=== PATIENT | female | born 1945 | race Caucasian/White ===

== ENCOUNTER → 2018-05-13 | Outpatient (REF) | payer MEDICARE ==
[~2018-05-13] MED LIST: AMLODIPINE10 MG PO; AMLODIPINE5 MG OR; AMOX TR-K CLV OR; AMOXICILLIN500 MG; ATORVASTATIN CA20 MG PO; AUGMENTIN500TAB PO; AVELOX400 MG PO; BACTRIM DS1 TAB PO; BENZONATATE200 MG PO; BIAXIN500 MG OR; CIPRO500 MG OR; CIPRO500 MG PO; CRESTOR5 MG PO; DARVOCET-N100 MG OR; DIOVAN160 MG OR; EXFORGE1 TA1 PO; FLAGYL500 MG OR; FLAGYL500 MG PO; IRON325 MG OR; KEFLEX500 M1 PO; LISINOPRIL30 MG OR; METO50TA52 PO; PANTOPRAZOLE SO40 M1 PO; PERCOCET 5/325M1 TAB OR; PRECOSE; PREDNISONE20 MG PO; PREVACID30 M1 OR; PROCRIT2000 MG/ML SC; PROTONIX40 M2 PO; RENVELA0.8 GM PO; ROBITUSSIN AC10 ML PO; ULTRAM50 M1 PO; VICOPROFEN OR; ZITHROMAX250 MG PO; [UNRECOGNIZED DRUG - CODE] IJ
[2018-05-13 09:52] LABS: CHOLESTEROL HDL RATIO 3.3 (<4.4 (CALC))
== END | disposition home or self-care (01) ==
LOC: LAB 08:16
PROVIDERS: ATTEND Internal Medicine
DX: E78.49 Other hyperlipidemia (principal)

== ENCOUNTER 2018-12-08 16:34 | Observation (INO) | payer MEDICARE ==
[~2018-12-08] VITALS: Ht 154.9 cm; Wt 49.2 kg
--- NOTE | 2018-12-08 17:14 | NUR ---
PT TO ROOM FOR EXAM
[2018-12-08] MEDS ORDERED: LOSARTAN POTASS50 MG PO (17:17)
[2018-12-08] MEDS ORDERED: RENVELA0.8 GM PO (17:18)
[2018-12-08 18:05] LABS: HEMATOCRIT 25.6 % (37.0-47.0); HEMOGLOBIN 8.6 g/dl (12.0-16.0); IMMATURE GRANULOCYTES 0.8 % (0.0-5.0); MEAN CELL VOLUME 90.8 fL CALC (80.0-100.0); MEAN CORPUSCULAR HGB 30.5 pG CALC (26.0-32.0); MEAN CORPUSCULAR HGB CONC 33.6 g/L CALC (32.0-36.0); NEUT# 6.82 thou/uL (2.00-7.15); RED BLOOD COUNT 2.82 mill/uL (4.20-5.60); RED CELL DISTRI WIDTH 13.5 % (11.5-15.5)
[2018-12-08 18:29] LABS: ALBUMIN 3.8 g/dL (3.2-5.0); TOTAL PROTEIN 7.1 g/dL (6.3-8.2)
[2018-12-08 18:32] LABS: BILIRUBIN, TOTAL 0.9 mg/dL (0.0-1.4); CREATININE 2.6 mg/dL (0.5-1.0); POTASSIUM 3.5 mmol/l (3.5-5.1)
--- NOTE | 2018-12-08 18:57 | NUR ---
PT SEEN BY DR. MOSELEY, RECTAL EXAM SHOWED SMALL HEMMHOID, NO BLEEDING AT THIS TIME
--- NOTE | 2018-12-08 20:05 | NUR ---
PT STATES FEELS MUCH BETTER, LIGHTS TURNED OFF, AND RESTING COMFORTABLY AT THIS TIME
--- NOTE | 2018-12-08 21:05 | NUR ---
PT DENIES ANY PAIN AT THIS TIME. ANTIBIOTIC INFUSING. VITAL SIGNS STABLE
--- NOTE | 2018-12-08 21:29 | NUR ---
REPORT GIVEN TO ASHELY ON FLOOR FOR CONTINUATION OF CARE
--- NOTE | 2018-12-08 21:34 | NUR ---
PT ARRIVED TO [facility]2 VIA STRETCHER ACCOMPANIED BY ER NURSE. PT STATES SHE IS TOO WEAK TO STAND, TRANFERRED FROM STRETCHER TO BED X3 ASSIST. PT ALSO C/O NAUSEA, NOTIFIED. ORIENTED PT TO ROOM AND CALL LIGHT, DISCUSSED POC, NOTED CRACKLES TO LUNGS POSTERIOR. INCENTIVE SPIROMETER BROUGHT TO BEDSIDE, DISCUSSED IT'S USE. PT NOT INTERESTED AT THIS TIME. DISCUSSED MIRALAX AND SUPPOSITORY PT STATES SHE JUST WANTS TO SLEEP. DISCUSSED FECAL IMPACTION POC, PT AGREED TO DRINK MIRALAX AFTER ZOFRAN AND AGREED TO SUPPOSITORY, REQUESTING BRIEF IN CASE OF "AN ACCIDENT". SKIN INTACT, PT HAS A SHUNT TO [place];+THRILL,+[place]. PT HAS DIALYSIS ON WED,,AND SAT. RECEIVED DIALYSIS TODAY.NOTED PT HAS MULTIPLE HEMORRHOIDS TO RECTUM, ADMISSION ASSESSMENT COMPLETED. CALL LIGHT IN REACH,CONTINUE TO MONITOR.
[2018-12-08 21:40] VITALS: BP 158/74
--- NOTE | 2018-12-08 21:45 | NUR ---
PT TRANSFERRED TO FLOOR PER STRETCHER
--- NOTE | 2018-12-09 00:10 | NUR ---
PT RESTING IN BED ON HER R SIDE, DISCUSSED MEDIPADS FOR RELIEF FROM HEMORRHOIDS, MEDIPAD GIVEN PT PLACED TO RECTUM. CALL LIGHT IN REACH,CONTINUE TO MONITOR.
--- NOTE | 2018-12-09 01:17 | NUR ---
PT ASSISTED BACK IN BED BY BULLDOGGER'S, PT HAD MODERATE SOFT DRY STOOLS. CALL LIGHT IN REACH,CONTINUE TO MONITOR.
[2018-12-09 04:19] VITALS: BP 151/63
--- NOTE | 2018-12-09 04:30 | NUR ---
PT RESTING IN BED, NO SIGNS OF DISTRESS NOTED, RESP EVEN AND UNLABORED. CALL LIGHT IN REACH,CONTINUE TO MONITOR.
[2018-12-09 05:07] LABS: HEMATOCRIT 24.9 % (37.0-47.0); HEMOGLOBIN 8.5 g/dl (12.0-16.0); MEAN CELL VOLUME 90.5 fL CALC (80.0-100.0); MEAN CORPUSCULAR HGB 30.9 pG CALC (26.0-32.0); MEAN CORPUSCULAR HGB CONC 34.1 g/L CALC (32.0-36.0); RED BLOOD COUNT 2.75 mill/uL (4.20-5.60); RED CELL DISTRI WIDTH 13.4 % (11.5-15.5)
[2018-12-09 05:38] LABS: CREATININE 3.3 mg/dL (0.5-1.0); POTASSIUM 3.6 mmol/l (3.5-5.1)
--- NOTE | 2018-12-09 07:00 | NUR ---
SHIFT CHANGE REPORT, PT AWAKE ALERT AND ORIENTED RESTING IN BED, NO C/O DISCOMFORT, ALL NEEDS ADDRESSED, CALL [place] IN REACH.
[2018-12-09 09:20] VITALS: BP 137/56
--- NOTE | 2018-12-09 12:00 | NUR ---
RESTING IN BED, REQUESTING TO HAVE SHOWER AND ADVISED STAFF WILL ASSIST IN SETTING HER UP FOR SHOWER AFTER LUNCH MEAL IS COMPLETED, STATED UNDERSTANDING.
[2018-12-09] MEDS ORDERED: DOCUSATE CAL240 MG PO (14:50)
[2018-12-09] MEDS ORDERED: MIRALAX3350 NF PO (14:50)
[2018-12-09] MEDS ORDERED: Levaquin PO (14:50)
[2018-12-09 15:10] VITALS: BP 171/67
[2018-12-09 15:33] VITALS: BP 151/60
--- NOTE | 2018-12-09 16:04 | NUR ---
Discharge instructions given. Patient verbalizes understanding of same. Discharged in good condition via Wheelchair to Home with family. All belongings sent with pt.
== END 2018-12-09 15:58 | disposition home or self-care (01) ==
LOC: ED 16:34 → ED-I 20:50 → ED 21:11 → MS2 21:12
PROVIDERS: Family Medicine; ADMIT Internal Medicine; ATTEND Internal Medicine
DX: K56.41 Fecal impaction (principal); J18.9 Pneumonia, unspecified organism; I12.0 Hypertensive chronic kidney disease with stage 5 chronic kidney disease or end stage renal disease; D63.1 Anemia in chronic kidney disease; N18.6 End stage renal disease; Z99.2 Dependence on renal dialysis; K64.9 Unspecified hemorrhoids; Z90.49 Acquired absence of other specified parts of digestive tract; Z87.891 Personal history of nicotine dependence

== ENCOUNTER 2019-05-17 | Emergency (ER) | payer MEDICARE ==
[~2019-05-17] MED LIST changes: +DOCUSATE CAL240 MG PO; +LOSARTAN POTASS50 MG PO; +Levaquin PO; +MIRALAX3350 NF PO
[2019-05-17 18:01] LABS: HEMATOCRIT 27.7 % (37.0-47.0); HEMOGLOBIN 9.2 g/dl (12.0-16.0); IMMATURE GRANULOCYTES 1.2 % (0.0-5.0); MEAN CELL VOLUME 90.8 fL CALC (80.0-100.0); MEAN CORPUSCULAR HGB 30.2 pG CALC (26.0-32.0); MEAN CORPUSCULAR HGB CONC 33.2 g/L CALC (32.0-36.0); NEUT# 13.42 thou/uL (2.00-7.15); RED BLOOD COUNT 3.05 mill/uL (4.20-5.60); RED CELL DISTRI WIDTH 13.5 % (11.5-15.5)
[2019-05-17 18:25] LABS: ALBUMIN 4.1 g/dL (3.2-5.0); ANION GAP 20 (6-22 (CALC)); BILIRUBIN, TOTAL 1.1 mg/dL (0.0-1.4); BUN 25 mg/dL (8-23); CARBON DIOXIDE 26 mmol/l (22-30); CHLORIDE 86 mmol/l (95-108); POTASSIUM 3.4 mmol/l (3.5-5.1); SGOT/AST 20 u/l (9-36); SODIUM 129 mmol/l (137-146); TOTAL PROTEIN 7.1 g/dL (6.3-8.2)
[2019-05-17 18:28] LABS: ALKALINE PHOSPHATASE 54 u/l (38-126); BUN/CREATININE RATIO 4 (12-20 (CALC)); CREATININE 5.9 mg/dL (0.5-1.0); GFR 7 ML/MIN (>=60 (CALC)); GFR FOR AFR.AMER. 9 ML/MIN (>=60 (CALC))
== END 2019-05-17 22:45 ==
DX: J18.9 Pneumonia, unspecified organism (principal); I12.0 Hypertensive chronic kidney disease with stage 5 chronic kidney disease or end stage renal disease; N18.6 End stage renal disease; Z99.2 Dependence on renal dialysis

== ENCOUNTER 2022-04-29 20:08 | Emergency (ER) | payer MEDICARE ==
[2022-04-29] VITALS (12 sets, daily range): BP systolic 156–178; BP diastolic 59–76
[~2022-04-29] VITALS: Ht 154.9 cm; Wt 46.3 kg
[2022-04-29 20:54] LABS: BASO% 0.8 % (0-3); EOS% 3.7 % (0-8); HEMATOCRIT 31.2 % (37.0-47.0); HEMOGLOBIN 10.4 g/dl (12.0-16.0); IMMATURE GRANULOCYTES 0.7 % (0.0-5.0); LYMPH% 7.5 % (15-41); MEAN CELL VOLUME 88.9 fL CALC (80.0-100.0); MEAN CORPUSCULAR HGB 29.6 pG CALC (26.0-32.0); MEAN CORPUSCULAR HGB CONC 33.3 g/dL CAL (32.0-36.0); MONO% 11.8 % (2-13); NEUT# 6.34 thou/uL (2.00-7.15); NEUT% 75.5 % (42-76); RED BLOOD COUNT 3.51 mill/uL (4.20-5.60); RED CELL DISTRI WIDTH 12.8 % (11.5-15.5)
[2022-04-29 21:07] LABS: ALBUMIN 4.5 g/dL (3.2-5.0); BILIRUBIN, TOTAL 0.7 mg/dL (0.02-1.3); CREATININE 1.1 mg/dL (0.5-1.0); POTASSIUM 3.9 mmol/l (3.5-5.1); TOTAL PROTEIN 7.2 g/dL (6.3-8.2)
[2022-04-29] MEDS ORDERED: PROGRAF1 MG PO (21:51)
[2022-04-29] MEDS ORDERED: CELLCEPT500 MG PO ×2 (21:52)
[2022-04-29] MEDS ORDERED: NORMODYNE/TRAN100 MG PO (21:53)
[2022-04-29] MEDS ORDERED: MAGNEBIND400 MG PO ×2 (21:54→21:55)
[2022-04-29] MEDS ORDERED: BACTRIM1 TAB PO (22:05)
[2022-04-29] MEDS ORDERED: CINACALCET HYDR30 MG PO (22:08)
[2022-04-29] MEDS ORDERED: LIPITOR10 M1 PO (22:09)
[2022-04-29 22:20] LABS: URINE BILIRUBIN - DIPSTICK NEGATIVE (NEGATIVE); URINE BLOOD DIPSTICK NEGATIVE (NEGATIVE); URINE COLOR YELLOW; URINE GLUCOSE - DIPSTICK NEGATIVE (NEGATIVE); URINE KETONE NEGATIVE (NEGATIVE); URINE LEUK ESTERASE NEGATIVE (NEGATIVE); URINE PH 7.5 (4.5-8.0); URINE PROTEIN - DIPSTICK NEGATIVE (NEG-TRACE); URINE SPECIFIC GRAVITY 1.025; URINE UROBILINOGEN - DIPSTICK 0.2 E.U./dL (0.2)
[2022-04-29 22:22] LABS: URINE NITRITE - DIPSTICK NEGATIVE (Negative)
[2022-04-29] MEDS ORDERED: PROMETHAZINE HY25 M1 PO (23:21)
[2022-04-29] MEDS ORDERED: LORTAB5 PO (23:23)
== END 2022-04-29 23:51 | disposition home or self-care (01) ==
LOC: ED 20:08
PROVIDERS: Family Medicine
DX: K80.20 Calculus of gallbladder without cholecystitis without obstruction (principal); I12.0 Hypertensive chronic kidney disease with stage 5 chronic kidney disease or end stage renal disease; N18.6 End stage renal disease; Z99.2 Dependence on renal dialysis; Z94.0 Kidney transplant status; Z20.822 Contact with and (suspected) exposure to COVID-19
CPT/HCPCS: S0164

== ENCOUNTER 2023-05-11 23:05 | Inpatient (IN) | payer MEDICARE ==
[~2023-05-11] VITALS: Ht 154.9 cm; Wt 45.0 kg
[~2023-05-11 23:05] MED LIST changes: +BACTRIM1 TAB PO; +CELLCEPT500 MG PO; +CINACALCET HYDR30 MG PO; +LIPITOR10 M1 PO; +LORTAB5 PO; +MAGNEBIND400 MG PO; +NORMODYNE/TRAN100 MG PO; +PROGRAF1 MG PO; +PROMETHAZINE HY25 M1 PO
[2023-05-11 23:20] VITALS: BP 162/61
[2023-05-11 23:30] VITALS: BP 167/69
[2023-05-11] MEDS ORDERED: SODIUM CHLORIDE 0.9% 1,000 ML IV ONE (23:40)
[2023-05-11] MEDS ORDERED: COLACE100 MG PO (23:45)
[2023-05-11] MEDS ORDERED: MYFORTIC360 MG PO (23:50)
[2023-05-12] VITALS (24 sets, daily range): BP systolic 72–175; BP diastolic 39–120
[2023-05-12] LABS: BASO% 0.5 % (0-3); EOS% 0.8 % (0-8); HEMATOCRIT 30.2 % (37.0-47.0); IMMATURE GRANULOCYTES 1.5 % (0.0-5.0); LYMPH% 7.1 % (15-41); MEAN CELL VOLUME 89.9 fL CALC (80.0-100.0); MEAN CORPUSCULAR HGB 29.8 pG CALC (26.0-32.0); MEAN CORPUSCULAR HGB CONC 33.1 g/dL CAL (32.0-36.0); MONO% 15.8 % (2-13); NEUT# 4.5 thou/uL (2.00-7.15); NEUT% 74.3 % (42-76); RED BLOOD COUNT 3.36 mill/uL (4.20-5.60); RED CELL DISTRI WIDTH 13.6 % (11.5-15.5)
[2023-05-12 00:43] LABS: URINE BILIRUBIN - DIPSTICK Negative (NEGATIVE); URINE BLOOD DIPSTICK Trace-lysed (NEGATIVE); URINE GLUCOSE - DIPSTICK Negative (NEGATIVE); URINE KETONE Negative (NEGATIVE); URINE LEUK ESTERASE Trace (NEGATIVE); URINE NITRITE - DIPSTICK Negative (Negative); URINE PROTEIN - DIPSTICK Negative (NEG-TRACE); URINE UROBILINOGEN - DIPSTICK 0.2 E.U./dL (0.2)
[2023-05-12 00:45] LABS: URINE COLOR Yellow
[2023-05-12 00:46] LABS: ALKALINE PHOSPHATASE 39 u/l (38-126); ANION GAP 11 (6-22 (CALC)); BILIRUBIN, TOTAL 0.7 mg/dL (0.02-1.3); BUN 14 mg/dL (8-23); BUN/CREATININE RATIO 16 (12-20 (CALC)); CARBON DIOXIDE 20 mmol/l (22-30); CHLORIDE 100 mmol/l (95-108); CREATININE 0.9 mg/dL (0.5-1.0); GFR FOR AFR.AMER. > 60 ML/MIN (>=60 (CALC)); GFR OTHER RACES > 60 ML/MIN (>=60 (CALC)); POTASSIUM 3.8 mmol/l (3.5-5.1); SGOT/AST 38 u/l (9-36); SODIUM 128 mmol/l (137-146)
[2023-05-12 00:47] LABS: ALBUMIN 3.7 g/dL (3.2-5.0); TOTAL PROTEIN 6.4 g/dL (6.3-8.2)
[2023-05-12] MEDS ORDERED: SODIUM CHLORIDE 0.9% 1,000 ML IV PRN (02:15)
[2023-05-12] MEDS ORDERED: MAGNESIUM HYDROXIDE 30 ML UDC PO PRN (02:15)
[2023-05-12] MEDS ORDERED: ACETAMINOPHEN 325 MG/TAB PO PRN (02:15)
[2023-05-12] MEDS ORDERED: LABETALOL HCL 100 MG/TAB PO SCH (09:30)
[2023-05-12 09:55] LABS: ALBUMIN 3.7 g/dL (3.2-5.0); ALKALINE PHOSPHATASE 36 u/l (38-126); ANION GAP 11 (6-22 (CALC)); BILIRUBIN, TOTAL 0.6 mg/dL (0.02-1.3); BUN 11 mg/dL (8-23); BUN/CREATININE RATIO 14 (12-20 (CALC)); CARBON DIOXIDE 23 mmol/l (22-30); CHLORIDE 101 mmol/l (95-108); CREATININE 0.8 mg/dL (0.5-1.0); GFR FOR AFR.AMER. > 60 ML/MIN (>=60 (CALC)); GFR OTHER RACES > 60 ML/MIN (>=60 (CALC)); POTASSIUM 3.8 mmol/l (3.5-5.1); SGOT/AST 41 u/l (9-36); SODIUM 130 mmol/l (137-146); TOTAL PROTEIN 6.2 g/dL (6.3-8.2)
[2023-05-12] MEDS ORDERED: DOCUSATE CALCIUM 240 MG/CAP PO PRN (12:25)
[2023-05-12] MEDS ORDERED: PATIENT' OWN MED 1 EA DOSE PO SCH ×4 (13:00→19:00)
[2023-05-12] MEDS ORDERED: AZITHROMYCIN 500 MG in SODIUM CHLORIDE 0.9% 250 ML IV SCH (14:00)
[2023-05-13] VITALS (9 sets, daily range): BP systolic 135–181; BP diastolic 50–70
[2023-05-13 08:15] LABS: BASO% 0.6 % (0-3); EOS% 0.6 % (0-8); HEMATOCRIT 26.4 % (37.0-47.0); HEMOGLOBIN 8.9 g/dl (12.0-16.0); IMMATURE GRANULOCYTES 1.1 % (0.0-5.0); LYMPH% 9.7 % (15-41); MEAN CELL VOLUME 89.5 fL CALC (80.0-100.0); MEAN CORPUSCULAR HGB 30.2 pG CALC (26.0-32.0); MEAN CORPUSCULAR HGB CONC 33.7 g/dL CAL (32.0-36.0); MONO% 16.9 % (2-13); NEUT# 3.28 thou/uL (2.00-7.15); NEUT% 71.1 % (42-76); RED BLOOD COUNT 2.95 mill/uL (4.20-5.60); RED CELL DISTRI WIDTH 13.6 % (11.5-15.5)
[2023-05-13] MEDS ORDERED: PATIENT' OWN MED 1 EA DOSE PO SCH ×4 (09:00→10:00)
[2023-05-13] MEDS ORDERED: ATORVASTATIN CALCIUM 10 MG/TAB PO SCH (09:00)
[2023-05-13 09:03] LABS: ALBUMIN 3.2 g/dL (3.2-5.0); ALKALINE PHOSPHATASE 30 u/l (38-126); ANION GAP 8 (6-22 (CALC)); BILIRUBIN, TOTAL 0.6 mg/dL (0.02-1.3); BUN 6 mg/dL (8-23); BUN/CREATININE RATIO 8 (12-20 (CALC)); CARBON DIOXIDE 22 mmol/l (22-30); CHLORIDE 103 mmol/l (95-108); CREATININE 0.8 mg/dL (0.5-1.0); GFR FOR AFR.AMER. > 60 ML/MIN (>=60 (CALC)); GFR OTHER RACES > 60 ML/MIN (>=60 (CALC)); MAGNESIUM 1.1 mg/dL (1.6-2.3); POTASSIUM 3.3 mmol/l (3.5-5.1); SGOT/AST 40 u/l (9-36); SODIUM 130 mmol/l (137-146); TOTAL PROTEIN 5.4 g/dL (6.3-8.2)
[2023-05-13] MEDS ORDERED: PATIENT' OWN MED 1 EA DOSE PO PRN (09:35)
[2023-05-13] MEDS ORDERED: POTASSIUM CHLORIDE 20 MEQ/TAB PO SCH (10:00)
[2023-05-13] MEDS ORDERED: MAGNESIUM SULFATE HEPTAHYDRATE 100 ML IV SCH (10:00)
[2023-05-13] MEDS ORDERED: CALCIUM CARBONATE 750 MG/TAB PO PRN (11:05)
[2023-05-13] MEDS ORDERED: PANTOPRAZOLE SODIUM Sesquihydr 40 MG/TAB PO SCH (11:30)
[2023-05-13] MEDS ORDERED: SODIUM CHLORIDE 1 GM/TAB TAB PO SCH (20:00)
[2023-05-13] MEDS ORDERED: SODIUM CHLORIDE 0.9% 1,000 ML IV SCH (20:05)
[2023-05-13] MEDS ORDERED: amLODIPine BESYLATE 5 MG/TAB PO SCH (20:05)
[2023-05-14] VITALS (9 sets, daily range): BP systolic 132–165; BP diastolic 43–73
[2023-05-14 05:36] LABS: BASO% 0.7 % (0-3); EOS% 2.4 % (0-8); HEMATOCRIT 27.6 % (37.0-47.0); HEMOGLOBIN 9.4 g/dl (12.0-16.0); IMMATURE GRANULOCYTES 1.2 % (0.0-5.0); LYMPH% 10.2 % (15-41); MEAN CELL VOLUME 89.3 fL CALC (80.0-100.0); MEAN CORPUSCULAR HGB 30.4 pG CALC (26.0-32.0); MEAN CORPUSCULAR HGB CONC 34.1 g/dL CAL (32.0-36.0); MONO% 18.8 % (2-13); NEUT# 2.73 thou/uL (2.00-7.15); NEUT% 66.7 % (42-76); RED BLOOD COUNT 3.09 mill/uL (4.20-5.60); RED CELL DISTRI WIDTH 13.6 % (11.5-15.5)
[2023-05-14 05:57] LABS: ALBUMIN 3.3 g/dL (3.2-5.0); ALKALINE PHOSPHATASE 32 u/l (38-126); ANION GAP 9 (6-22 (CALC)); BILIRUBIN, TOTAL 0.5 mg/dL (0.02-1.3); BUN 5 mg/dL (8-23); BUN/CREATININE RATIO 7 (12-20 (CALC)); CARBON DIOXIDE 24 mmol/l (22-30); CHLORIDE 102 mmol/l (95-108); CREATININE 0.7 mg/dL (0.5-1.0); GFR FOR AFR.AMER. > 60 ML/MIN (>=60 (CALC)); GFR OTHER RACES > 60 ML/MIN (>=60 (CALC)); POTASSIUM 3.5 mmol/l (3.5-5.1); SGOT/AST 39 u/l (9-36); SODIUM 131 mmol/l (137-146); TOTAL PROTEIN 5.6 g/dL (6.3-8.2)
[2023-05-14 06:02] LABS: MAGNESIUM 1.6 mg/dL (1.6-2.3)
[2023-05-14] MEDS ORDERED: GUAIFENESIN 600 MG/TAB PO SCH (10:30)
[2023-05-14] MEDS ORDERED: MUCINEX600 MG PO (11:22)
[2023-05-14] MEDS ORDERED: SOD CHLORIDE1 GM PO (11:52)
[2023-05-14] MEDS ORDERED: AMLODIPINE BESYL5 MG PO (11:52)
[2023-05-14] MEDS ORDERED: PATIENT' OWN MED 1 EA DOSE PO SCH (19:00)
== END 2023-05-14 18:26 | disposition home health service (06) | DRG 641 ==
LOC: ED 23:05 → ED-I 23:58 → ED 05-12 02:12 → ED-I 05-12 02:13 → MS2 05-12 15:15
PROVIDERS: Family Medicine; Nurse Practitioner Family; ADMIT Internal Medicine; ATTEND Internal Medicine
DX: E87.1 Hypo-osmolality and hyponatremia (principal); Z94.0 Kidney transplant status; D63.1 Anemia in chronic kidney disease; E87.6 Hypokalemia; J06.9 Acute upper respiratory infection, unspecified; E83.42 Hypomagnesemia; I12.9 Hypertensive chronic kidney disease with stage 1 through stage 4 chronic kidney disease, or unspecified chronic kidney disease; N18.30 Chronic kidney disease, stage 3 unspecified; R91.1 Solitary pulmonary nodule; K21.9 Gastro-esophageal reflux disease without esophagitis; Z90.49 Acquired absence of other specified parts of digestive tract; Z87.891 Personal history of nicotine dependence; Z79.621 Long term (current) use of calcineurin inhibitor
CPT/HCPCS: J3475